=== PATIENT | male | born 1985 | race Hispanic/Latino ===

== ENCOUNTER 2024-01-23 10:32 | Observation (INO) | payer SELFPAY ==
--- NOTE | 2024-01-23 10:58 | ERPHSYRPT ---
- History of Present Illness Time Seen by Provider: 01/23/24 10:58 Physician History: Patient is a 38-year-old male presents to our ED as a referral from [facility] for evaluation of left-sided facial droop. Patient reports his symptoms started Monday. Symptoms have been persistent. No trauma no fever. Patient complains of some pain to the left cervical paraspinal musculature as well. No trauma no fever. No nausea vomiting or diaphoresis. Symptoms have been constant. Symptoms are moderate in intensity. No specific worsening or improving factors. Patient reports he is otherwise healthy he did denies taking any medication. Patient voices no other complaints or concerns at this time. Patient speaks primarily Italian. Dr. Abreu spoke to patient in Italian Dr. Abreu is fluent in Italian. Timing/Duration: day(s) Severity: moderate (4 days) Modifying Factors: Improves With: nothing Associated Symptoms: denies symptoms Allergies/Adverse Reactions: No Known Drug Allergies Allergy (Verified 01/23/24 11:01) Home Medications: No Reportable Medications [No Reported Medications] 01/23/24 [History] - Review of Systems Constitutional: No Symptoms, No Fever, No Chills Eyes: No Symptoms Ears, Nose, & Throat: No Symptoms Respiratory: No Symptoms, No Cough, No Dyspnea Cardiac: No Symptoms, No Chest Pain, No Edema, No Syncope Abdominal/Gastrointestinal: No Symptoms, No Abdominal Pain, No Nausea, No Vomiting, No Diarrhea Genitourinary Symptoms: No Symptoms, No Dysuria Musculoskeletal: No Symptoms, No Back Pain, No Neck Pain Skin: No Symptoms, No Rash Neurological: No Symptoms, No Dizziness, No Focal Weakness, No Sensory Changes Psychological: No Symptoms Endocrine: No Symptoms Hematologic/Lymphatic: No Symptoms Immunological/Allergic: No Symptoms All Other Systems: Reviewed and Negative - Nursing Vital Signs Nursing Vital Signs: Initial Vital Signs Temperature 98.7 F 01/23/24 10:37 Pulse Rate 81 01/23/24 10:37 Respiratory Rate 14 01/23/24 10:37 Blood Pressure 140/88 01/23/24 10:37 O2 Sat by Pulse Oximetry 95 01/23/24 10:37 Pain Scale Pain Intensity 0 - Physical Exam General Appearance: no apparent distress, alert Eye Exam: PERRL/EOMI, eyes nml inspection Ears, Nose, Throat Exam: normal ENT inspection, TMs normal, pharynx normal, moist mucous membranes Neck Exam: normal inspection, non-tender, supple, full range of motion Respiratory Exam: normal breath sounds, lungs clear, airway intact, No respiratory distress Cardiovascular Exam: regular rate/rhythm, normal heart sounds, normal peripheral pulses Gastrointestinal/Abdomen Exam: soft, normal bowel sounds, No tenderness, No mass Back Exam: normal inspection, normal range of motion, No CVA tenderness, No vertebral tenderness Extremity Exam: normal inspection, normal range of motion, pelvis stable Neurologic Exam: alert, oriented x 3, cooperative, normal mood/affect, sensation nml, other (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.), No motor deficits Skin Exam: normal color, warm, dry, No rash Lymphatic Exam: No adenopathy SpO2 Interpretation: normal SpO2: 95 O2 Delivery: Room Air - Course Nursing assessment & vital signs reviewed: Yes EKG Interpreted by Me: RATE (75), Sinus Rhythm, NORMAL AXIS, NORMAL INTERVALS - CT Exams Head CT Interpretation: Tele-radiologist Report (No acute intracranial process.) Soft Tissue Neck CT Interpretation: Tele-radiologist Report (No acute findings.) Ordered Tests: Active Orders 24 hr Category Date Time Status Ticket Printer STAT Care 01/23/24 10:57 Active EKG-ER Only STAT Care 01/23/24 10:56 Active IV Insertion STAT Care 01/23/24 10:56 Active Pulse Oximetry (ED) STAT Care 01/23/24 10:56 Active CERVICAL SPINE WO CONTRAST [CT] Stat Exams 01/23/24 10:56 Completed HEAD WITHOUT CONTRAST [CT] Stat Exams 01/23/24 10:55 Completed CBC W DIFF Stat Lab 01/23/24 11:17 Completed CMP Stat Lab 01/23/24 11:02 Completed NT PRO BNPII Stat Lab 01/23/24 11:02 Completed TROPONIN Q4H Lab 01/23/24 11:02 Completed TROPONIN Q4H Lab 01/23/24 15:00 Ordered TROPONIN Q4H Lab 01/23/24 19:00 Ordered Transfer Order Routine Transfer 01/23/24 Ordered Medication Summary Generic Name Dose Route Start Last Admin Trade Name Freq PRN Reason Stop Dose Admin Sodium Chloride 1,000 mls @ 100 mls/hr 01/23/24 11:00 01/23/24 11:25 Sodium Chloride 0.9% 1000 Ml IV 02/22/24 10:59 100 mls/hr .Q10H [id number] Administration Lab/Rad Data: Laboratory Result Diagrams 01/23/24 11:17 01/23/24 11:02 Laboratory Results 01/23/24 01/23/24 01/23/24 Range/Units 11:17 11:02 11:02 WBC 7.2 (4.0-10.5) x10^3/uL RBC 5.35 (4.1-5.6) x10^6/uL Hgb 16.3 (12.5-18.0) g/dL Hct 46.3 (42-50) % MCV 86.5 (78-100) fL MCH 30.5 (26-32) pg MCHC 35.2 (32-36) g/dL RDW 12.6 (11.5-14.0) % Plt Count 325 (150-450) x10^3/uL MPV 9.9 (7.5-11.0) fL Gran % 61.4 (36.0-66.0) % Immature Gran % (Auto) 0.1 (0.00-0.4) % Nucleat RBC Rel Count 0.0 (0.00-0.1) % Eos # (Auto) 0.14 (0-0.5) x10^3/uL Immature Gran # (Auto) 0.01 (0.00-0.03) x10^3u/L Absolute Lymphs (auto) 2.21 (1.0-4.6) x10^3/uL Absolute Monos (auto) 0.34 (0.0-1.3) x10^3/uL Absolute Nucleated RBC 0.00 (0.00-0.01) x10^3u/L Lymphocytes % 30.8 (24.0-44.0) % Monocytes % 4.7 (0.0-12.0) % Eosinophils % 1.9 (0.00-5.0) % Basophils % 1.1 (0.0-0.4) % Absolute Granulocytes 4.40 (1.4-6.9) x10^3/uL Basophils # 0.08 (0-0.4) x10^3/uL Sodium (135-145) mmol/L Potassium (3.5-5.1) mmol/L Chloride (98-107) mmol/L Carbon Dioxide (22-30) mmol/L Anion Gap (5-15) MEQ/L BUN (9-20) mg/dL Creatinine (0.66-1.25) mg/dL Estimated GFR ML/MIN Glucose (74-106) mg/dL Calcium (8.4-10.2) mg/dL Total Bilirubin (0.2-1.3) mg/dL AST (17-59) U/L ALT (0-50) U/L Alkaline Phosphatase (38-126) U/L Troponin I < 0.012 (0.000-0.033) ng/mL NT-Pro-B Natriuret Pep < 20.0 (<300) pg/mL Serum Total Protein (6.3-8.2) g/dL Albumin (3.5-5.0) g/dL 01/23/24 Range/Units 11:02 WBC (4.0-10.5) x10^3/uL RBC (4.1-5.6) x10^6/uL Hgb (12.5-18.0) g/dL Hct (42-50) % MCV (78-100) fL MCH (26-32) pg MCHC (32-36) g/dL RDW (11.5-14.0) % Plt Count (150-450) x10^3/uL MPV (7.5-11.0) fL Gran % (36.0-66.0) % Immature Gran % (Auto) (0.00-0.4) % Nucleat RBC Rel Count (0.00-0.1) % Eos # (Auto) (0-0.5) x10^3/uL Immature Gran # (Auto) (0.00-0.03) x10^3u/L Absolute Lymphs (auto) (1.0-4.6) x10^3/uL Absolute Monos (auto) (0.0-1.3) x10^3/uL Absolute Nucleated RBC (0.00-0.01) x10^3u/L Lymphocytes % (24.0-44.0) % Monocytes % (0.0-12.0) % Eosinophils % (0.00-5.0) % Basophils % (0.0-0.4) % Absolute Granulocytes (1.4-6.9) x10^3/uL Basophils # (0-0.4) x10^3/uL Sodium 139 (135-145) mmol/L Potassium 4.2 (3.5-5.1) mmol/L Chloride 105 (98-107) mmol/L Carbon Dioxide 21 L (22-30) mmol/L Anion Gap 17.0 H (5-15) MEQ/L BUN 15 (9-20) mg/dL Creatinine 0.83 (0.66-1.25) mg/dL Estimated GFR 114.2 ML/MIN Glucose 121 H (74-106) mg/dL Calcium 9.6 (8.4-10.2) mg/dL Total Bilirubin 1.20 (0.2-1.3) mg/dL AST 65 H (17-59) U/L ALT 78 H (0-50) U/L Alkaline Phosphatase 77 (38-126) U/L Troponin I (0.000-0.033) ng/mL NT-Pro-B Natriuret Pep (<300) pg/mL Serum Total Protein 9.5 H (6.3-8.2) g/dL Albumin 5.3 H (3.5-5.0) g/dL - Progress Progress: improved Progress Note: 38-year-old male presents to our ED for evaluation of left-sided facial droop. Physical exam reveals left-sided facial droop consistent with Lira's palsy. Neurologic exam otherwise normal. CT head nonremarkable. On exam patient has some tenderness along the left cervical paraspinal musculature. CT cervical spine negative for acute pathology. Laboratory workup nonremarkable. Teleneuro evaluated patient. They observed a deviation of the tongue towards the right. They are concerned that this is not a feature of Lira's palsy and are now requesting admission for MRI with and without contrast of brain. Plan of care discussed with patient. He agrees to admission [facility] for further evaluation. Case discussed with hospitalist who accepts admission at 1:22 PM Complexity problem addressed is moderate acute complicated. No critical care time. Complex of data reviewed and analyzed is extensive. Test ordered test reviewed results analyzed and correlated clinically with history and physical examination. Management discussed with teleneurologist and hospitalist. Patient will be admitted for further evaluation and treatment. Risk of complication and or risk of morbidity/mortality patient management is high. Patient requires hospitalization for further evaluation and treatment. Vital stable. Time spent admit patient approximately 20 minutes. Plan of care established for shared decision making. No social determinants of health present impede follow-up. Portions of this note were created with voice recognition technology. There may be grammatical, spelling, punctuation or sound alike errors 01/23/24 13:22 Counseled pt/family regarding: lab results, diagnosis, rad results - Departure Departure Disposition: Observation Clinical Impression: Left-sided facial droop, Lira's palsy, Rule out CVA Condition: Stable Critical Care Time: No Referrals: DOCTOR,NO FAMILY [Primary Care Provider] - Follow up/PCP as directed CANDIDA SENIOR MD [ACTIVE STAFF] - Follow up/PCP as directed
[2024-01-23 11:16] LABS: BASOPHIL % 1.1 % (0.0-0.4); Basophil (Absolute #) 0.08 x10^3/uL (0-0.4); Eosinophil % 1.9 % (0.00-5.0); Eosinophil (Absolute #) 0.14 x10^3/uL (0-0.5); Hematocrit 46.3 % (42-50); Hemoglobin 16.3 g/dL (12.5-18.0); IMMATURE GRAN # 0.01 x10^3u/L (0.00-0.03); IMMATURE GRAN % 0.1 % (0.00-0.4); Lymphocyte (Absolute #) 2.21 x10^3/uL (1.0-4.6); Lymphocytes % 30.8 % (24.0-44.0); Mean Cell Volume 86.5 fL (78-100); Mean Corpuscular Hemoglobin 30.5 pg (26-32); Mean Corpuscular Hgb Concent. 35.2 g/dL (32-36); Mean Platelet Volume 9.9 fL (7.5-11.0); Monocyte (Absolute #) 0.34 x10^3/uL (0.0-1.3); Monocytes % 4.7 % (0.0-12.0); Neutrophil % 61.4 % (36.0-66.0); Platelet Count 325 x10^3/uL (150-450); Red Blood Count 5.35 x10^6/uL (4.1-5.6); Red Cell Distribution Width 12.6 % (11.5-14.0); White Blood Count 7.2 x10^3/uL (4.0-10.5)
[2024-01-23] MEDS: Sodium Chloride 0.9% 1000 ML 1,000 ML IV SCH (11:25)
[2024-01-23 11:27] LABS: ALBUMIN 5.3 g/dL (3.5-5.0); BILIRUBIN,TOTAL 1.2 mg/dL (0.2-1.3); Calcium 9.6 mg/dL (8.4-10.2); Creatinine 1 0.83 mg/dL (0.66-1.25); EST GLOMERULAR FILTRATION RATE 114.2 ML/MIN; Potassium 4.2 mmol/L (3.5-5.1); Total Protein 9.5 g/dL (6.3-8.2)
--- NOTE | 2024-01-23 11:44 | XRAY ---
CLINICAL HISTORY: stroke, left facial droop COMPARISON: None. TECHNIQUE: An axial unenhanced CT scan of the brain was performed from the skull base to the high parietal region.?one of the following dose reduction techniques were utilized for this exam: Automated exposure control, adjustment of the mA and/or kV according to patient size, use of iterative reconstruction? FINDINGS: No CT evidence of territorial ischemic infarctions. No intracerebral or extra axial hematoma. The visualized brain parenchyma shows a normal appearance. No focal parenchymal abnormalities are demonstrated. Tom-white matter differentiation is maintained. No midline shifts or deformity. Normal size and configuration of the cerebral ventricles. Normal CT appearance of the posterior fossa structures namely the cerebellar hemispheres, brainstem, and cerebellar peduncles. No definite calvarium fractures. Falx calcification seen. Scanned paranasal sinuses are clear. IMPRESSION: No CT evidence of territorial ischemic infarctions. No intracerebral or extra-axial hematoma, for diagnosis of acute infractions MR diffusion is recommended. [facility] ER was called at [phone] at 11:34 AM EST, 01/23/2024 and results were verbally communicated to Surya Mcdaniel. Electronically Signed by: Chilango Campos MD. (01/23/2024 11:39:50 EDT)
--- NOTE | 2024-01-23 11:54 | XRAY ---
CLINICAL HISTORY: pain COMPARISON: None. TECHNIQUE: Thin axial CT of the cervical spine was performed with sagittal and coronal reconstructions without contrast.?one of the following dose reduction techniques were utilized for this exam: Automated exposure control, adjustment of the mA and/or kV according to patient size, use of iterative reconstruction? FINDINGS: No acute fracture or dislocation was seen. Straightened cervical curve, possibly muscle spasm. The vertebral bodies are normal in height. No lytic or sclerotic bone lesion. The craniovertebral measures are unremarkable. Normal intervertebral disc spaces. Level by Level analysis: C2-C3: No central canal or neuroforaminal stenosis. C3-C4: No central canal or neuroforaminal stenosis. C4-C5: No central canal or neuroforaminal stenosis. C5-C6: No central canal or neuroforaminal stenosis. C6-C7: No central canal or neuroforaminal stenosis. IMPRESSION: No acute fracture or dislocation was seen. Straightened cervical curve, possibly muscle spasm. Electronically Signed by: Chilango Campos MD. (01/23/2024 11:50:44 EDT)
[2024-01-23] MEDS ORDERED: BABY ASPIRIN 81 MG CHEW ONE (13:27)
[2024-01-23] MEDS: BABY ASPIRIN 81 MG CHEW PO ONE (13:31)
--- NOTE | 2024-01-23 14:08 | PCM.HP ---
<JACQUE GRAHAM - Last Filed: 01/23/24 14:30> History of Present Illness - Chief Complaint Chief Complaint: Stroke v [place] palsy Date: 01/23/24 History of Present Illness: Mr.MORAN TURCIOS is a 38 year old male with no reportable PMHX who presented to ED 01/23/24 with complaints of a five day history of left-sided facial droop and left neck and arm pain. Patient states that he was in his usual state of health until this past Monday when he noticed that he was unable to close his left eye, was having difficulty chewing food, and that his left face appeared asymmetrical. He also notes that he has been having pain to his left neck and shoulder. No recent trauma, fevers, or sick contacts. Symptoms have been constant with no relieving/aggravating factors. In ED vitals stable. CT head with no acute findings. CT cervical spine with no acute findings. EKG NS with no ST elevations/deviations. Neurology consulted in ED with recommendations for MRI w/wo contrast which is scheduled for today. Patient was given aspirin 324mg in ED and IVF. - Review of Systems Constitutional: No Symptoms Eyes: No Symptoms, Other Ears, Nose, & Throat: No Symptoms Respiratory: Short Of Breath Cardiac: No Symptoms Abdominal/Gastrointestinal: No Symptoms Genitourinary Symptoms: No Symptoms Musculoskeletal: Neck Pain Skin: No Symptoms Neurological: No Symptoms, No Focal Weakness, No Gait Changes, No Sensory Changes, No Speech Changes Psychological: No Symptoms Endocrine: No Symptoms Hematologic/Lymphatic: No Symptoms Immunological/Allergic: No Symptoms Medications & Allergies Home Medications: Home Medication List No Reportable Medications [No Reported Medications] 01/23/24 [History Confirmed 01/23/24] Allergies/Adverse Reactions: Allergies Allergy/AdvReac Type Severity Reaction Status Date / Time No Known Drug Allergies Allergy Verified 01/23/24 11:01 - Past Medical History Past Medical History: No - Past Surgical History Past Surgical History: No - Social History Smoking Status: Never smoker Exposure to second hand smoke: Yes Alcohol: Daily Drug Use: none - Social Determinants of Health Will the patient participate in the screening: Declined to provide - Physical Exam Vital Signs: Vital Signs - 24 hr Temp Pulse Resp BP BP Pulse Ox 01/23/24 13:50 97.8 F 75 16 134/74 93 L 01/23/24 13:29 95 01/23/24 13:10 80 13 95 01/23/24 13:02 76 14 94 L 01/23/24 12:07 78 14 130/95 94 L 01/23/24 11:00 78 15 131/84 94 L 01/23/24 10:37 98.7 F 81 14 140/88 95 General Appearance: no apparent distress Neurologic Exam: alert, oriented x 3, cooperative, normal mood/affect, nml station & gait, facial droop (left sided facial droop), other (BUE strength 5/5, no drift, BLE strenght 5/5 no drift), No motor weakness, No aphasia Eye Exam: PERRL/EOMI Ears, Nose, Throat Exam: other (tongue deviation to the right) Respiratory Exam: lungs clear, diminished breath sounds Cardiovascular Exam: regular rate/rhythm, normal heart sounds Gastrointestinal/Abdomen Exam: soft, normal bowel sounds Rectal Exam: deferred Back Exam: normal inspection Extremity Exam: normal range of motion Skin Exam: normal color Results - Labs Lab/Micro Results: Lab Results-Last 24 Hours 01/23/24 01/23/24 01/23/24 Range/Units 11:02 11:02 11:02 WBC (4.0-10.5) x10^3/uL RBC (4.1-5.6) x10^6/uL Hgb (12.5-18.0) g/dL Hct (42-50) % MCV (78-100) fL MCH (26-32) pg MCHC (32-36) g/dL RDW (11.5-14.0) % Plt Count (150-450) x10^3/uL MPV (7.5-11.0) fL Gran % (36.0-66.0) % Immature Gran % (Auto) (0.00-0.4) % Nucleat RBC Rel Count (0.00-0.1) % Eos # (Auto) (0-0.5) x10^3/uL Immature Gran # (Auto) (0.00-0.03) x10^3u/L Absolute Lymphs (auto) (1.0-4.6) x10^3/uL Absolute Monos (auto) (0.0-1.3) x10^3/uL Absolute Nucleated RBC (0.00-0.01) x10^3u/L Lymphocytes % (24.0-44.0) % Monocytes % (0.0-12.0) % Eosinophils % (0.00-5.0) % Basophils % (0.0-0.4) % Absolute Granulocytes (1.4-6.9) x10^3/uL Basophils # (0-0.4) x10^3/uL Sodium 139 (135-145) mmol/L Potassium 4.2 (3.5-5.1) mmol/L Chloride 105 (98-107) mmol/L Carbon Dioxide 21 L (22-30) mmol/L Anion Gap 17.0 H (5-15) MEQ/L BUN 15 (9-20) mg/dL Creatinine 0.83 (0.66-1.25) mg/dL Estimated GFR 114.2 ML/MIN Glucose 121 H (74-106) mg/dL Calcium 9.6 (8.4-10.2) mg/dL Total Bilirubin 1.20 (0.2-1.3) mg/dL AST 65 H (17-59) U/L ALT 78 H (0-50) U/L Alkaline Phosphatase 77 (38-126) U/L Troponin I < 0.012 (0.000-0.033) ng/mL NT-Pro-B Natriuret Pep < 20.0 (<300) pg/mL Serum Total Protein 9.5 H (6.3-8.2) g/dL Albumin 5.3 H (3.5-5.0) g/dL 01/23/24 Range/Units 11:17 WBC 7.2 (4.0-10.5) x10^3/uL RBC 5.35 (4.1-5.6) x10^6/uL Hgb 16.3 (12.5-18.0) g/dL Hct 46.3 (42-50) % MCV 86.5 (78-100) fL MCH 30.5 (26-32) pg MCHC 35.2 (32-36) g/dL RDW 12.6 (11.5-14.0) % Plt Count 325 (150-450) x10^3/uL MPV 9.9 (7.5-11.0) fL Gran % 61.4 (36.0-66.0) % Immature Gran % (Auto) 0.1 (0.00-0.4) % Nucleat RBC Rel Count 0.0 (0.00-0.1) % Eos # (Auto) 0.14 (0-0.5) x10^3/uL Immature Gran # (Auto) 0.01 (0.00-0.03) x10^3u/L Absolute Lymphs (auto) 2.21 (1.0-4.6) x10^3/uL Absolute Monos (auto) 0.34 (0.0-1.3) x10^3/uL Absolute Nucleated RBC 0.00 (0.00-0.01) x10^3u/L Lymphocytes % 30.8 (24.0-44.0) % Monocytes % 4.7 (0.0-12.0) % Eosinophils % 1.9 (0.00-5.0) % Basophils % 1.1 (0.0-0.4) % Absolute Granulocytes 4.40 (1.4-6.9) x10^3/uL Basophils # 0.08 (0-0.4) x10^3/uL Sodium (135-145) mmol/L Potassium (3.5-5.1) mmol/L Chloride (98-107) mmol/L Carbon Dioxide (22-30) mmol/L Anion Gap (5-15) MEQ/L BUN (9-20) mg/dL Creatinine (0.66-1.25) mg/dL Estimated GFR ML/MIN Glucose (74-106) mg/dL Calcium (8.4-10.2) mg/dL Total Bilirubin (0.2-1.3) mg/dL AST (17-59) U/L ALT (0-50) U/L Alkaline Phosphatase (38-126) U/L Troponin I (0.000-0.033) ng/mL NT-Pro-B Natriuret Pep (<300) pg/mL Serum Total Protein (6.3-8.2) g/dL Albumin (3.5-5.0) g/dL - Radiology Impressions Radiology Exams & Impressions: Radiology Procedures Category Date Time Status CERVICAL SPINE WO CONTRAST [CT] Stat Exams 01/23/24 10:56 Completed HEAD WITHOUT CONTRAST [CT] Stat Exams 01/23/24 10:55 Completed Assessment/Plan (1) Facial droop Current Visit: Yes Status: Acute Assessment & Plan: -Stroke vs [place] Palsy -left-sided, Reviewed neuro consult documentation, agree with plan for MRI Brain w/wo, if positive for stroke-further stroke workup with MRA Brain/neck, echo, otherwise treat for [place] palsy following results with Prednisone 60mg daily x 1 week/ Valtrex 1000mg TID x 1 week, artificial tears/ Eye ointment patch, opthalmology referral if no improvement -tele Code(s): R29.810 - FACIAL WEAKNESS (2) Neck pain Current Visit: Yes Status: Acute Assessment & Plan: -cervical spine with no acute findings, no motor deficits -pain control Code(s): M54.2 - CERVICALGIA (3) Dysphagia Current Visit: Yes Status: Acute Assessment & Plan: -NPO until ST eval Code(s): R13.10 - DYSPHAGIA, UNSPECIFIED Telemedicine Encounter - Telemedicine Encounter Telemedicine Encounter: The entirety of this encounter was performed via Telemedicine" <ALANIS QUEEN - Last Filed: 01/23/24 21:18> History of Present Illness - Chief Complaint History of Present Illness: Mr.MORAN TURCIOS is a 38 year old male. - Physical Exam Vital Signs: Vital Signs - 24 hr Temp Pulse Resp BP BP Pulse Ox 01/23/24 20:00 98.0 F 78 18 114/71 95 01/23/24 16:00 97.8 F 75 16 134/74 93 L 01/23/24 14:02 97.8 F 75 16 134/74 93 L 01/23/24 13:50 97.8 F 75 16 134/74 93 L 01/23/24 13:29 95 01/23/24 13:10 80 13 95 01/23/24 13:02 76 14 94 L 01/23/24 12:07 78 14 130/95 94 L 01/23/24 11:00 78 15 131/84 94 L 01/23/24 10:37 98.7 F 81 14 140/88 95 Results - Labs Lab/Micro Results: Lab Results-Last 24 Hours 01/23/24 01/23/24 01/23/24 Range/Units 11:02 11:02 11:02 WBC (4.0-10.5) x10^3/uL RBC (4.1-5.6) x10^6/uL Hgb (12.5-18.0) g/dL Hct (42-50) % MCV (78-100) fL MCH (26-32) pg MCHC (32-36) g/dL RDW (11.5-14.0) % Plt Count (150-450) x10^3/uL MPV (7.5-11.0) fL Gran % (36.0-66.0) % Immature Gran % (Auto) (0.00-0.4) % Nucleat RBC Rel Count (0.00-0.1) % Eos # (Auto) (0-0.5) x10^3/uL Immature Gran # (Auto) (0.00-0.03) x10^3u/L Absolute Lymphs (auto) (1.0-4.6) x10^3/uL Absolute Monos (auto) (0.0-1.3) x10^3/uL Absolute Nucleated RBC (0.00-0.01) x10^3u/L Lymphocytes % (24.0-44.0) % Monocytes % (0.0-12.0) % Eosinophils % (0.00-5.0) % Basophils % (0.0-0.4) % Absolute Granulocytes (1.4-6.9) x10^3/uL Basophils # (0-0.4) x10^3/uL Sodium 139 (135-145) mmol/L Potassium 4.2 (3.5-5.1) mmol/L Chloride 105 (98-107) mmol/L Carbon Dioxide 21 L (22-30) mmol/L Anion Gap 17.0 H (5-15) MEQ/L BUN 15 (9-20) mg/dL Creatinine 0.83 (0.66-1.25) mg/dL Estimated GFR 114.2 ML/MIN Glucose 121 H (74-106) mg/dL POC Glucometer (74 to 106) mg/dL Calcium 9.6 (8.4-10.2) mg/dL Total Bilirubin 1.20 (0.2-1.3) mg/dL AST 65 H (17-59) U/L ALT 78 H (0-50) U/L Alkaline Phosphatase 77 (38-126) U/L Troponin (0.00-0.03) ng/mL Troponin I < 0.012 (0.000-0.033) ng/mL NT-Pro-B Natriuret Pep < 20.0 (<300) pg/mL Serum Total Protein 9.5 H (6.3-8.2) g/dL Albumin 5.3 H (3.5-5.0) g/dL 01/23/24 01/23/24 01/23/24 Range/Units 11:17 15:35 15:35 WBC 7.2 (4.0-10.5) x10^3/uL RBC 5.35 (4.1-5.6) x10^6/uL Hgb 16.3 (12.5-18.0) g/dL Hct 46.3 (42-50) % MCV 86.5 (78-100) fL MCH 30.5 (26-32) pg MCHC 35.2 (32-36) g/dL RDW 12.6 (11.5-14.0) % Plt Count 325 (150-450) x10^3/uL MPV 9.9 (7.5-11.0) fL Gran % 61.4 (36.0-66.0) % Immature Gran % (Auto) 0.1 (0.00-0.4) % Nucleat RBC Rel Count 0.0 (0.00-0.1) % Eos # (Auto) 0.14 (0-0.5) x10^3/uL Immature Gran # (Auto) 0.01 (0.00-0.03) x10^3u/L Absolute Lymphs (auto) 2.21 (1.0-4.6) x10^3/uL Absolute Monos (auto) 0.34 (0.0-1.3) x10^3/uL Absolute Nucleated RBC 0.00 (0.00-0.01) x10^3u/L Lymphocytes % 30.8 (24.0-44.0) % Monocytes % 4.7 (0.0-12.0) % Eosinophils % 1.9 (0.00-5.0) % Basophils % 1.1 (0.0-0.4) % Absolute Granulocytes 4.40 (1.4-6.9) x10^3/uL Basophils # 0.08 (0-0.4) x10^3/uL Sodium 140 (135-145) mmol/L Potassium 4.1 (3.5-5.1) mmol/L Chloride 105 (98-107) mmol/L Carbon Dioxide 24 (22-30) mmol/L Anion Gap 15.4 H (5-15) MEQ/L BUN 12 (9-20) mg/dL Creatinine 0.87 (0.66-1.25) mg/dL Estimated GFR 112.6 ML/MIN Glucose 102 (74-106) mg/dL POC Glucometer (74 to 106) mg/dL Calcium 9.2 (8.4-10.2) mg/dL Total Bilirubin 1.00 (0.2-1.3) mg/dL AST 55 (17-59) U/L ALT 76 H (0-50) U/L Alkaline Phosphatase 72 (38-126) U/L Troponin (0.00-0.03) ng/mL Troponin I < 0.012 (0.000-0.033) ng/mL NT-Pro-B Natriuret Pep (<300) pg/mL Serum Total Protein 8.7 H (6.3-8.2) g/dL Albumin 5.0 (3.5-5.0) g/dL 01/23/24 01/23/24 Range/Units 16:52 19:10 WBC (4.0-10.5) x10^3/uL RBC (4.1-5.6) x10^6/uL Hgb (12.5-18.0) g/dL Hct (42-50) % MCV (78-100) fL MCH (26-32) pg MCHC (32-36) g/dL RDW (11.5-14.0) % Plt Count (150-450) x10^3/uL MPV (7.5-11.0) fL Gran % (36.0-66.0) % Immature Gran % (Auto) (0.00-0.4) % Nucleat RBC Rel Count (0.00-0.1) % Eos # (Auto) (0-0.5) x10^3/uL Immature Gran # (Auto) (0.00-0.03) x10^3u/L Absolute Lymphs (auto) (1.0-4.6) x10^3/uL Absolute Monos (auto) (0.0-1.3) x10^3/uL Absolute Nucleated RBC (0.00-0.01) x10^3u/L Lymphocytes % (24.0-44.0) % Monocytes % (0.0-12.0) % Eosinophils % (0.00-5.0) % Basophils % (0.0-0.4) % Absolute Granulocytes (1.4-6.9) x10^3/uL Basophils # (0-0.4) x10^3/uL Sodium (135-145) mmol/L Potassium (3.5-5.1) mmol/L Chloride (98-107) mmol/L Carbon Dioxide (22-30) mmol/L Anion Gap (5-15) MEQ/L BUN (9-20) mg/dL Creatinine (0.66-1.25) mg/dL Estimated GFR ML/MIN Glucose (74-106) mg/dL POC Glucometer 94 (74 to 106) mg/dL Calcium (8.4-10.2) mg/dL Total Bilirubin (0.2-1.3) mg/dL AST (17-59) U/L ALT (0-50) U/L Alkaline Phosphatase (38-126) U/L Troponin 0.00 (0.00-0.03) ng/mL Troponin I (0.000-0.033) ng/mL NT-Pro-B Natriuret Pep (<300) pg/mL Serum Total Protein (6.3-8.2) g/dL Albumin (3.5-5.0) g/dL Accuchecks Date 01/23/24 Time 16:53 - Radiology Impressions Radiology Exams & Impressions: Radiology Procedures Category Date Time Status CERVICAL SPINE WO CONTRAST [CT] Stat Exams 01/23/24 10:56 Completed HEAD WITHOUT CONTRAST [CT] Stat Exams 01/23/24 10:55 Completed MRI BRAIN W & W/O CONTRAST [MRI] Stat Exams 01/23/24 14:24 Completed Telemedicine Encounter - Telemedicine Encounter Telemedicine Encounter: The entirety of this encounter was performed via Telemedicine" BOUBACAR Encounter - BOUBACAR Encounter Attestation BOUBACAR Encounter Attestation: "IhavepersonallyseenandexamineTARA Tabor andhavediscussed pertinent aspects of their care with Jacque Tate agree with the history, physical exam (any modifications based on my personal exam will be noted below), assessment, and plan as outlined in original note. Please see immediately below for my summary of findings and additional assessment and plan along with any meaningful corrections/explanations to the Subjective/Objective portions of the BOUBACAR note will be noted." My portion of the encounter took place via telemedicine. -Stroke ruled out with negative MRI. 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 Discharge home tomorrow.
[2024-01-23] MEDS ORDERED: Zofran 4 MG/2 ML VIAL IV PRN (15:09)
[2024-01-23] MEDS ORDERED: TYLENOL 325 MG PO PRN (15:09)
--- NOTE | 2024-01-23 15:44 | XRAY ---
Indication: Left facial droop. Normal CT head exam earlier in the day. Sagittal, coronal, and axial MRI brain performed using pre-and post T1, T2, FLAIR, diffusion, and ADC sequences. 15 cc Dotarem contrast used. Comparison: None Ventriculosulcal pattern appears symmetric. Incidental CT proven 1 cm benign anterior falx calcification. No acute intracranial hemorrhage, abnormal extra-axial fluid collection, or mass effect. Diffusion images negative for restricted signal. Following gadolinium, there is no abnormal enhancing intra or extra-axial mass. Fourth ventricle is midline without hydrocephalus. 7/8 cranial nerve complex bilaterally symmetric. Normal flow void signal within the major intracerebral circulation. Normal appearing craniocervical junction and sella turcica. Visualized paranasal sinuses and mastoid air cells are clear. Impression: Negative MRI brain with contrast exam.
[2024-01-23] MEDS: Artificial Tears 15 ML OP SCH (15:53)
[2024-01-23 16:07] LABS: ANION GAP 15.4 MEQ/L (5-15); Calcium 9.2 mg/dL (8.4-10.2); Creatinine 1 0.87 mg/dL (0.66-1.25); EST GLOMERULAR FILTRATION RATE 112.6 ML/MIN; Potassium 4.1 mmol/L (3.5-5.1); Total Protein 8.7 g/dL (6.3-8.2)
[2024-01-23] MEDS: DELTASONE 20 MG PO ONE (16:54)
[2024-01-23] MEDS: ACYCLOVIR PO SCH (16:54)
[2024-01-23] MEDS: Lubrifresh P.M. 3.5 gm Ointment OP SCH (23:00)
[2024-01-24 04:56] LABS: Absolute Neutrophil Ct (ANC) 5.55 x10^3/uL (1.4-6.9); BASOPHIL % 0.3 % (0.0-0.4); Basophil (Absolute #) 0.02 x10^3/uL (0-0.4); Eosinophil (Absolute #) 0 x10^3/uL (0-0.5); Hematocrit 43.6 % (42-50); Hemoglobin 15.2 g/dL (12.5-18.0); IMMATURE GRAN # 0.02 x10^3u/L (0.00-0.03); IMMATURE GRAN % 0.3 % (0.00-0.4); Lymphocyte (Absolute #) 1.52 x10^3/uL (1.0-4.6); Lymphocytes % 20.9 % (24.0-44.0); Mean Cell Volume 87.9 fL (78-100); Mean Corpuscular Hemoglobin 30.6 pg (26-32); Mean Corpuscular Hgb Concent. 34.9 g/dL (32-36); Mean Platelet Volume 9.9 fL (7.5-11.0); Monocyte (Absolute #) 0.16 x10^3/uL (0.0-1.3); Monocytes % 2.2 % (0.0-12.0); Neutrophil % 76.3 % (36.0-66.0); Platelet Count 326 x10^3/uL (150-450); Red Blood Count 4.96 x10^6/uL (4.1-5.6); Red Cell Distribution Width 12.6 % (11.5-14.0); White Blood Count 7.3 x10^3/uL (4.0-10.5)
--- NOTE | 2024-01-24 05:29 | PCM.DS ---
Discharge Summary Date of Admission: 01/23/24 13:48 Date of Discharge: 01/24/24 Admitting Physician: ALANIS QUEEN MD Primary Care Provider: NO FAMILY DOCTOR Allergies Allergies No Known Drug Allergies Allergy (Verified 01/23/24 11:01) Hospital Summary - Hospital Course Hospital Course: Mr.MORAN TURCIOS is a 38 year old male with no reportable PMHX who presented to ED 01/23/24 with complaints of a five day history of left-sided facial droop and left neck and arm pain. Patient states that he was in his usual state of health until this past Monday when he noticed that he was unable to close his left eye, was having difficulty chewing food, and that his left face appeared asymmetrical. He also notes that he has been having pain to his left neck and shoulder. No recent trauma, fevers, or sick contacts. Symptoms have been constant with no relieving/aggravating factors. In ED vitals stable. CT head with no acute findings. CT cervical spine with no acute findings. EKG NS with no ST elevations/deviations. Neurology consulted in ED with recommendations for MRI w/wo contrast which is scheduled for today. Patient was given aspirin 324mg in ED and IVF. MRI Brain w/wo was negative for acute findings. Per neurology recommendations patient to be treated for Otoe palsy with prednisone 60mg daily for 1 week and acyclovir 1000mg TID for 1 week. Patient also advised frequent use of artificial tears during the day as well as eye ointment, eye patch. May need Opthalmology referral if no improvement from PCP. Will set him up with PCP prior to DC. Discharge Note New Diagnosis: Otoe Palsy New Medications: Prednisone/Acyclovir/artificial tears/lubrifresh ointment Follow Up: PCP/ Opthalmology (PRN) Latest Assessment & Plan (1) Facial droop Current Visit: Yes Status: Acute Assessment & Plan: -Stroke vs Otoe Palsy -left-sided, Reviewed neuro consult documentation, agree with plan for MRI Brain w/wo, if positive for stroke-further stroke workup with MRA Brain/neck, echo, otherwise treat for Otoe palsy following results with Prednisone 60mg daily x 1 week/ Valtrex 1000mg TID x 1 week, artificial tears/ Eye ointment patch, opthalmology referral if no improvement -tele Code(s): R29.810 - FACIAL WEAKNESS (2) Neck pain Current Visit: Yes Status: Acute Assessment & Plan: -cervical spine with no acute findings, no motor deficits -pain control Code(s): M54.2 - CERVICALGIA (3) Dysphagia Current Visit: Yes Status: Acute Assessment & Plan: -NPO until ST eval I spent 35 minutes [id number] with the patient on the day of discharge performing discharge exam, discussing hospital stay and discharge instructions with patient and caregivers, preparation of discharge records, prescriptions & referral forms and addressing any questions/concerns the patient had as docume nted above. - Vitals & Intake/Output Vital Signs: Vital Signs Temperature 98.0 F 01/24/24 04:00 Pulse Rate 81 01/24/24 04:00 Respiratory Rate 18 01/24/24 04:00 Blood Pressure 120/69 01/24/24 04:00 O2 Sat by Pulse Oximetry 99 01/24/24 04:00 Intake & Output: Intake & Output 01/21/24 01/22/24 01/23/24 01/24/24 11:59 11:59 11:59 11:59 Intake Total 360 Balance 360 Weight 94.347 kg 91.8 kg - Lab Result Diagrams: 01/24/24 04:27 01/23/24 15:35 Lab Results-Last 24 Hrs: Lab Results-Last 24 Hours 01/23/24 01/23/24 01/23/24 Range/Units 11:02 11:02 11:02 WBC (4.0-10.5) x10^3/uL RBC (4.1-5.6) x10^6/uL Hgb (12.5-18.0) g/dL Hct (42-50) % MCV (78-100) fL MCH (26-32) pg MCHC (32-36) g/dL RDW (11.5-14.0) % Plt Count (150-450) x10^3/uL MPV (7.5-11.0) fL Gran % (36.0-66.0) % Immature Gran % (Auto) (0.00-0.4) % Nucleat RBC Rel Count (0.00-0.1) % Eos # (Auto) (0-0.5) x10^3/uL Immature Gran # (Auto) (0.00-0.03) x10^3u/L Absolute Lymphs (auto) (1.0-4.6) x10^3/uL Absolute Monos (auto) (0.0-1.3) x10^3/uL Absolute Nucleated RBC (0.00-0.01) x10^3u/L Lymphocytes % (24.0-44.0) % Monocytes % (0.0-12.0) % Eosinophils % (0.00-5.0) % Basophils % (0.0-0.4) % Absolute Granulocytes (1.4-6.9) x10^3/uL Basophils # (0-0.4) x10^3/uL Sodium 139 (135-145) mmol/L Potassium 4.2 (3.5-5.1) mmol/L Chloride 105 (98-107) mmol/L Carbon Dioxide 21 L (22-30) mmol/L Anion Gap 17.0 H (5-15) MEQ/L BUN 15 (9-20) mg/dL Creatinine 0.83 (0.66-1.25) mg/dL Estimated GFR 114.2 ML/MIN Glucose 121 H (74-106) mg/dL POC Glucometer (74 to 106) mg/dL Hemoglobin A1c (4.5-6.0) % Calcium 9.6 (8.4-10.2) mg/dL Total Bilirubin 1.20 (0.2-1.3) mg/dL AST 65 H (17-59) U/L ALT 78 H (0-50) U/L Alkaline Phosphatase 77 (38-126) U/L Troponin (0.00-0.03) ng/mL Troponin I < 0.012 (0.000-0.033) ng/mL NT-Pro-B Natriuret Pep < 20.0 (<300) pg/mL Serum Total Protein 9.5 H (6.3-8.2) g/dL Albumin 5.3 H (3.5-5.0) g/dL 01/23/24 01/23/24 01/23/24 Range/Units 11:15 11:17 15:35 WBC 7.2 (4.0-10.5) x10^3/uL RBC 5.35 (4.1-5.6) x10^6/uL Hgb 16.3 (12.5-18.0) g/dL Hct 46.3 (42-50) % MCV 86.5 (78-100) fL MCH 30.5 (26-32) pg MCHC 35.2 (32-36) g/dL RDW 12.6 (11.5-14.0) % Plt Count 325 (150-450) x10^3/uL MPV 9.9 (7.5-11.0) fL Gran % 61.4 (36.0-66.0) % Immature Gran % (Auto) 0.1 (0.00-0.4) % Nucleat RBC Rel Count 0.0 (0.00-0.1) % Eos # (Auto) 0.14 (0-0.5) x10^3/uL Immature Gran # (Auto) 0.01 (0.00-0.03) x10^3u/L Absolute Lymphs (auto) 2.21 (1.0-4.6) x10^3/uL Absolute Monos (auto) 0.34 (0.0-1.3) x10^3/uL Absolute Nucleated RBC 0.00 (0.00-0.01) x10^3u/L Lymphocytes % 30.8 (24.0-44.0) % Monocytes % 4.7 (0.0-12.0) % Eosinophils % 1.9 (0.00-5.0) % Basophils % 1.1 (0.0-0.4) % Absolute Granulocytes 4.40 (1.4-6.9) x10^3/uL Basophils # 0.08 (0-0.4) x10^3/uL Sodium (135-145) mmol/L Potassium (3.5-5.1) mmol/L Chloride (98-107) mmol/L Carbon Dioxide (22-30) mmol/L Anion Gap (5-15) MEQ/L BUN (9-20) mg/dL Creatinine (0.66-1.25) mg/dL Estimated GFR ML/MIN Glucose (74-106) mg/dL POC Glucometer (74 to 106) mg/dL Hemoglobin A1c 5.71 (4.5-6.0) % Calcium (8.4-10.2) mg/dL Total Bilirubin (0.2-1.3) mg/dL AST (17-59) U/L ALT (0-50) U/L Alkaline Phosphatase (38-126) U/L Troponin (0.00-0.03) ng/mL Troponin I < 0.012 (0.000-0.033) ng/mL NT-Pro-B Natriuret Pep (<300) pg/mL Serum Total Protein (6.3-8.2) g/dL Albumin (3.5-5.0) g/dL 01/23/24 01/23/24 01/23/24 Range/Units 15:35 16:52 19:10 WBC (4.0-10.5) x10^3/uL RBC (4.1-5.6) x10^6/uL Hgb (12.5-18.0) g/dL Hct (42-50) % MCV (78-100) fL MCH (26-32) pg MCHC (32-36) g/dL RDW (11.5-14.0) % Plt Count (150-450) x10^3/uL MPV (7.5-11.0) fL Gran % (36.0-66.0) % Immature Gran % (Auto) (0.00-0.4) % Nucleat RBC Rel Count (0.00-0.1) % Eos # (Auto) (0-0.5) x10^3/uL Immature Gran # (Auto) (0.00-0.03) x10^3u/L Absolute Lymphs (auto) (1.0-4.6) x10^3/uL Absolute Monos (auto) (0.0-1.3) x10^3/uL Absolute Nucleated RBC (0.00-0.01) x10^3u/L Lymphocytes % (24.0-44.0) % Monocytes % (0.0-12.0) % Eosinophils % (0.00-5.0) % Basophils % (0.0-0.4) % Absolute Granulocytes (1.4-6.9) x10^3/uL Basophils # (0-0.4) x10^3/uL Sodium 140 (135-145) mmol/L Potassium 4.1 (3.5-5.1) mmol/L Chloride 105 (98-107) mmol/L Carbon Dioxide 24 (22-30) mmol/L Anion Gap 15.4 H (5-15) MEQ/L BUN 12 (9-20) mg/dL Creatinine 0.87 (0.66-1.25) mg/dL Estimated GFR 112.6 ML/MIN Glucose 102 (74-106) mg/dL POC Glucometer 94 (74 to 106) mg/dL Hemoglobin A1c (4.5-6.0) % Calcium 9.2 (8.4-10.2) mg/dL Total Bilirubin 1.00 (0.2-1.3) mg/dL AST 55 (17-59) U/L ALT 76 H (0-50) U/L Alkaline Phosphatase 72 (38-126) U/L Troponin 0.00 (0.00-0.03) ng/mL Troponin I (0.000-0.033) ng/mL NT-Pro-B Natriuret Pep (<300) pg/mL Serum Total Protein 8.7 H (6.3-8.2) g/dL Albumin 5.0 (3.5-5.0) g/dL 01/23/24 01/24/24 Range/Units 21:23 04:27 WBC 7.3 (4.0-10.5) x10^3/uL RBC 4.96 (4.1-5.6) x10^6/uL Hgb 15.2 (12.5-18.0) g/dL Hct 43.6 (42-50) % MCV 87.9 (78-100) fL MCH 30.6 (26-32) pg MCHC 34.9 (32-36) g/dL RDW 12.6 (11.5-14.0) % Plt Count 326 (150-450) x10^3/uL MPV 9.9 (7.5-11.0) fL Gran % 76.3 H (36.0-66.0) % Immature Gran % (Auto) 0.3 (0.00-0.4) % Nucleat RBC Rel Count 0.0 (0.00-0.1) % Eos # (Auto) 0 (0-0.5) x10^3/uL Immature Gran # (Auto) 0.02 (0.00-0.03) x10^3u/L Absolute Lymphs (auto) 1.52 (1.0-4.6) x10^3/uL Absolute Monos (auto) 0.16 (0.0-1.3) x10^3/uL Absolute Nucleated RBC 0.00 (0.00-0.01) x10^3u/L Lymphocytes % 20.9 L (24.0-44.0) % Monocytes % 2.2 (0.0-12.0) % Eosinophils % 0.0 (0.00-5.0) % Basophils % 0.3 (0.0-0.4) % Absolute Granulocytes 5.55 (1.4-6.9) x10^3/uL Basophils # 0.02 (0-0.4) x10^3/uL Sodium (135-145) mmol/L Potassium (3.5-5.1) mmol/L Chloride (98-107) mmol/L Carbon Dioxide (22-30) mmol/L Anion Gap (5-15) MEQ/L BUN (9-20) mg/dL Creatinine (0.66-1.25) mg/dL Estimated GFR ML/MIN Glucose (74-106) mg/dL POC Glucometer 139 H (74 to 106) mg/dL Hemoglobin A1c (4.5-6.0) % Calcium (8.4-10.2) mg/dL Total Bilirubin (0.2-1.3) mg/dL AST (17-59) U/L ALT (0-50) U/L Alkaline Phosphatase (38-126) U/L Troponin (0.00-0.03) ng/mL Troponin I (0.000-0.033) ng/mL NT-Pro-B Natriuret Pep (<300) pg/mL Serum Total Protein (6.3-8.2) g/dL Albumin (3.5-5.0) g/dL Micro Results-Entire Visit: Accuchecks Date 01/23/24 Date 01/23/24 Time 21:00 Time 16:53 - Radiology Exams Ordered Rad Exams-Entire Visit: Radiology Procedures Category Date Time Status CERVICAL SPINE WO CONTRAST [CT] Stat Exams 01/23/24 10:56 Completed HEAD WITHOUT CONTRAST [CT] Stat Exams 01/23/24 10:55 Completed MRI BRAIN W & W/O CONTRAST [MRI] Stat Exams 01/23/24 14:24 Completed - Procedures and Test Procedures and Tests throughout Hospitalization: Therapy Orders & Screens 01/23/24 14:48 Speech Therapy Eval & Treat [ Eval & Sheri (MD Order)] .as ordered Comment: Physician Instructions: eval and treat Reason For Exam: left sided facial droop stroke vs bells palsy Evaluate: Yes Treat: Yes Reason for Eval: left sided facial droop stroke vs bells palsy Diagnosis: Stroke v Otoe palsy Discharge Exam General Appearance: no apparent distress Neurologic Exam: alert, oriented x 3, cooperative, facial droop Eye Exam: PERRL Ears, Nose, Throat Exam: moist mucous membranes Neck Exam: normal inspection Respiratory Exam: normal breath sounds, lungs clear Cardiovascular Exam: regular rate/rhythm, normal heart sounds Gastrointestinal/Abdomen Exam: soft, normal bowel sounds Male Genitalia Exam: deferred Rectal Exam: deferred Back Exam: normal inspection Extremity Exam: normal inspection Skin Exam: normal color Final Diagnosis/Problem List - Final Discharge Diagnosis/Problem (1) Dolan's palsy Current Visit: Yes Status: Acute Code(s): G51.0 - DOLAN'S PALSY (2) Facial droop Current Visit: Yes Status: Acute Code(s): R29.810 - FACIAL WEAKNESS (3) Neck pain Current Visit: Yes Status: Acute Code(s): M54.2 - CERVICALGIA (4) Dysphagia Current Visit: Yes Status: Acute Code(s): R13.10 - DYSPHAGIA, UNSPECIFIED - Discharge Disposition: Home, Self-Care Condition: Stable Prescriptions: New Acyclovir 200 mg Cap [Acyclovir] 1,000 mg PO TID 7 Days #21 cap Polyvinyl Alcohol Tears [Artificial Tears 15 ML] See Rx Instructions .ROUTE .COMPLEX 30 Days #1 unit Prednisone 20 mg [Deltasone 20 mg] 60 mg PO DAILY 6 Days #18 tablet Lanolin/Min Oil/Petrolat Wht [Lubrifresh P.M. 3.5 gm Ointment] See Rx Instructions .ROUTE .COMPLEX 30 Days #1 unit Instructions: Dolan's Palsy (DC) Follow up with: DOCTOR,NO FAMILY [Primary Care Provider] - Forms: Discharge Instructions
[2024-01-24 07:31] VITALS: RESP 16
[2024-01-24] MEDS: DELTASONE 20 MG PO SCH (09:22)
[2024-01-24 11:41] VITALS: BP 123/57; PULSE 80; TEMP 96.7; O2SAT 93
== END 2024-01-24 12:25 | disposition home or self-care (01) ==
LOC: ED 10:32 → MED SURG 13:48
PROVIDERS: ADMIT Internal Medicine; ATTEND Internal Medicine
DX: R29.810 Facial weakness (principal); M54.2 Cervicalgia; R13.10 Dysphagia, unspecified; K14.8 Other diseases of tongue; R47.1 Dysarthria and anarthria
CPT/HCPCS: 36000; 36415; 70450; 70553; 72125; 80053; 80061; 82947; 83036; 83721; 83880; 84484; 85025; 92610; 93005; 93041; 94760; 99285; Q3014; 93268; A9270-GY; G0378